=== PATIENT | male | born 1990 | race Caucasian/White ===

== ENCOUNTER 2018-01-12 14:22 | Emergency (ER) | payer OTHER ==
[~2018-01-12] VITALS: Ht 177.8 cm; Wt 79.4 kg
[~2018-01-12 14:22] MED LIST: AMOX1TAB12 PO; MOTRIN800 MG PO; ZITHROMAX TRI-500 MG PO
== END 2018-01-12 19:09 | disposition home or self-care (01) ==
LOC: ER 14:22
DX: M54.89 Other dorsalgia (principal)